=== PATIENT | female | born 1995 | race Caucasian/White ===

== ENCOUNTER 2017-05-08 00:23 | Emergency (ER) | payer BC ==
[~2017-05-08] VITALS: Ht 160 cm; Wt 67.0 kg
[2017-05-08 00:35] VITALS: TEMP 36.6; Ht 160 cm; Wt 67.0 kg
[2017-05-08] MEDS ORDERED: IBUPROFEN 600 MG TAB PO STA (00:54)
--- NOTE | 2017-05-08 01:04 | EMERGENCY ROOM VISIT NOTE ---
History Report prepared by Francie: Jeaneth Solis Under the Supervision of: Dr. Rupa Brown D.O. First contact with patient: 00:40 Chief Complaint: URINARY SYMPTOMS Stated Complaint: VAGINAL PAIN/IRRITATION/HURTS TO PEE History of Present Illness The patient is a 22 year old female who presents to the Emergency Room with complaints of sudden vaginal pain beginning at 2000 tonight. She rates her pain at a 7/10. The patient states that it kirk when she urinates. The patient reports that she did not take any medication for pain. She states that she has not had an STD or a yeast infection before. The patient states that she had sex 2 weeks ago with a new partner and used a condom. She states that she asked her partner if he had an STD, and he would not tell her. The patient reports that her last menstrual period ended yesterday. Source of History: patient Onset: 1999 tonight Position: other (vagina) Symptom Intensity: rated at a 7/10 Timing: other (sudden) Note: additional symptom: burning with urination Review of Systems See HPI for pertinent positives & negatives. A total of 10 systems reviewed and were otherwise negative. Past Medical & Surgical Medical Problems: (1) No active medical problems Family History Cancer Social History Smoking Status: Never Smoker Marital Status: single Current/Historical Medications No Active Prescriptions or Reported Meds Allergies Coded Allergies: No Known Allergies (Unverified , 05/08/17) Physical Exam Vital Signs Date Time Temp Pulse Resp B/P (MAP) Pulse Ox O2 Delivery O2 Flow Rate FiO2 05/08/17 02:29 84 16 118/68 98 05/08/17 00:35 36.6 94 18 111/70 98 Room Air Physical Exam HEENT: Head - normocephalic and atraumatic Pupils are equal, round, and reactive to light. Extraocular eye muscles are intact, and sclera are anicteric. Nose - moist nasal mucosa without discharge. Mouth - moist buccal mucosa. Oropharynx is nonerythematous and there is no tonsillar exudate or edema noted. Neck: Supple; no cervical lymphadenopathy Heart: Regular rate and rhythm. There is a normal S1 and S2 with no murmurs, clicks, or gallops appreciated. Lungs: Clear to auscultation bilaterally with no wheezes, rales, or rhonchi. Abdomen: Soft, completely nontender, nondistended, with good bowel sounds. There are no palpable pulsatile masses or hepatosplenomegaly. There is no guarding, rigidity, or rebound noted. Extremities: No evidence of cyanosis, clubbing, or edema. There are easily palpable peripheral pulses. Skin: warm and dry with good turgor and no rashes. Pelvic: On speculum exam, the cervix appeared healthy. The patient had some brown discharge consistent with old blood. There was some slight labial erythema but no obvious vesicular lesions or vaginal discharge. The patient could not tolerate a bimanual exam because of the burning discomfort. Medical Decision & Procedures Laboratory Results Test 05/08/17 00:45 05/08/17 01:20 Urine Color YELLOW Urine Appearance CLEAR (CLEAR) Urine pH 7.5 (4.5-7.5) Urine Specific [place] 1.006 (1.000-1.030) Urine Protein NEG (NEG) Urine Glucose (UA) NEG (NEG) Urine Ketones NEG (NEG) Urine Occult Blood 1+ (NEG) Urine Nitrite NEG (NEG) Urine Bilirubin NEG (NEG) Urine Urobilinogen NEG (NEG) Urine Leukocyte Esterase NEG (NEG) Urine WBC (Auto) 0 /hpf (0-5) Urine RBC (Auto) 0-4 /hpf (0-4) Urine Hyaline Casts (Auto) 1-5 /lpf (0-5) Urine Epithelial Cells (Auto) >30 /lpf (0-5) Urine Bacteria (Auto) NEG (NEG) Urine Test NEG (NEG) Date/Time Source Procedure Growth Status 05/08/17 01:20 Vaginal Swab Trichomonas Preparation - Final Complete Laboratory results per my review. Medications Administered Medications (Trade) Dose Ordered Sig/Carlitos Route Start Time Stop Time Status Last Admin Dose Admin Ibuprofen (Motrin Tab) 600 mg NOW STAT PO 05/08/17 00:54 05/08/17 00:56 DC 05/08/17 01:18 600 MG Fluconazole (Diflucan Tab) 150 mg NOW ONCE PO 05/08/17 01:30 05/08/17 01:31 DC 05/08/17 01:37 150 MG Procedure Medications ordered: Motrin Tab PO, Diflucan Tab PO. ED Course 0051: Past medical records reviewed. The patient was evaluated in room A3. A complete history and physical exam was performed. A urine specimen was obtained. 0054: Ordered Motrin Tab 600 mg PO. 0130: A pelvic exam was performed. I Ordered Diflucan Tab 150 mg PO. 0200: The patient did not want to stay for her gram stain. She stated that she would like to go home. 0210: Upon reevaluation, the patient is resting. I discussed findings and results with her. She verbalized agreement of the treatment plan. She was discharged home. Medical Decision The patient is a 22 year old female who presents to the ED with vaginal pain. Differential diagnosis includes herpes, UTI, yeast infection, sexually transmitted infection, and chemical irritation. Lab results are as follows: Urine: 1+ and more than 30 epithelial cells, no signs of infection, negative This is a 22-year-old female patient presents to the emergency department with some vaginal burning and dysuria. Urinalysis was negative for infection. Pelvic exam revealed no obvious vaginal discharge or vesicular lesions about the labia. The patient was given a dose of Diflucan. Staff the lab were unable to interpret her Gram stain and preferred to wait for pathology to evaluated. The charge nurse here in the emergency Department will follow-up on this today and contact the patient if there is any significant normality. Otherwise, the patient was instructed to call back here on for results of her cultures. Medication Reconcilliation Current Medication List: was personally reviewed by me Blood Pressure Screening Patient's blood pressure: Normal blood pressure Impression Primary Impression: Vaginal burning Scribe Attestation The scribe's documentation has been prepared under my direction and personally reviewed by me in its entirety. I confirm that the note above accurately reflects all work, treatment, procedures, and medical decision making performed by me. Departure Information Dispostion Home / Self-Care Prescriptions No Active Prescriptions or Reported Meds Forms HOME CARE DOCUMENTATION FORM, IMPORTANT VISIT INFORMATION Patient Instructions My [facility] QR Artist Additional Instructions Rest. Avoid anything in the vagina over the next 5-7 days. Stop using the new soap. You can call the ER for your final swab results on - [phone]
[2017-05-08 01:28] LABS: URINE APPEARANCE CLEAR (CLEAR); URINE BILIRUBIN NEG (NEG); URINE COLOR YELLOW; URINE EPITHELIAL CELL AUTO >30 /lpf (0-5); URINE NITRITE NEG (NEG); URINE PH 7.5 (4.5-7.5); URINE SPECIFIC GRAVITY 1.006 (1.000-1.030); UROBILINOGEN NEG (NEG)
[2017-05-08 01:29] LABS: MANUAL MICROSCOPIC REQUIRED? NO; REVIEW REQ? NO
[2017-05-08] MEDS ORDERED: FLUCONAZOLE 50 MG TAB PO ONE (01:30)
[2017-05-08 02:29] VITALS: BP 118/68; PULSE 84; O2SAT 98
[2017-05-10 01:46] LABS: CHLAMYDIA TRACH RNA*** NOT DETECTED (NOT DETECTED); GC (NEIS GONORRHOEAE)RNA** NOT DETECTED (NOT DETECTED)
== END 2017-05-08 02:30 | disposition home or self-care (01) ==
LOC: C.EDB 00:24 → C.EDA 02:30
DX: R10.2 Pelvic and perineal pain (principal); R30.0 Dysuria; Z80.9 Family history of malignant neoplasm, unspecified